=== PATIENT | male | born 1940 | race African-American/Black ===

== ENCOUNTER 2019-04-15 12:09 | Emergency (ER) | payer MEDICARE, OTHER ==
[~2019-04-15] VITALS: Ht 175.3 cm; Wt 79.0 kg
[~2019-04-15 12:09] MED LIST: AMLO2.5T45 MT; ASPI-1158 PO; GLIP5TAB12 PO; LOSA100T32 PO; METF-815 PO; NIAC500T76 PO; PRAV40TA58 PO
[2019-04-15 12:43] VITALS: BP 159/82
== END 2019-04-15 15:57 | disposition left against medical advice (07) ==
LOC: ER 12:09
DX: R05 Cough (principal); R09.81 Nasal congestion; Z53.21 Procedure and treatment not carried out due to patient leaving prior to being seen by health care provider

== ENCOUNTER 2019-04-15 23:10 | Emergency (ER) | payer MEDICARE, OTHER ==
[~2019-04-15] VITALS: Ht 175.3 cm; Wt 80.0 kg
[2019-04-16 01:49] VITALS: BP 139/78
== END 2019-04-16 01:51 | disposition home or self-care (01) ==
LOC: ER 23:10
DX: J06.9 Acute upper respiratory infection, unspecified (principal)
CPT/HCPCS: 71045; 87804; 99284

== ENCOUNTER 2022-10-05 17:37 | Emergency (ER) | payer MEDICARE, OTHER ==
[~2022-10-05] VITALS: Ht 172.7 cm; Wt 75.0 kg
[~2022-10-05 17:37] MED LIST changes: -ASPI-1158 PO; +ASPI-1406 PO; -LOSA100T32 PO; +LOSA100T33 PO; -METF-815 PO; +METF-873 PO
[2022-10-05 17:58] VITALS: BP 119/77; PULSE 77; RESP 12; TEMP 98.6; O2SAT 100
== END 2022-10-05 17:57 | disposition left against medical advice (07) ==
LOC: ER 17:37
DX: K04.7 Periapical abscess without sinus (principal); Z53.21 Procedure and treatment not carried out due to patient leaving prior to being seen by health care provider

== ENCOUNTER 2023-12-31 18:32 | Emergency (ER) | payer OTHER, MEDICARE ==
[~2023-12-31] VITALS: Ht 172.7 cm; Wt 75.0 kg
[~2023-12-31 18:32] MED LIST changes: -GLIP5TAB12 PO; +GLIP5TAB22 PO
[2023-12-31 18:41] VITALS: BP 104/55; PULSE 90; RESP 18; TEMP 98.6; O2SAT 96
[2023-12-31] MEDS ORDERED: CARB15DR63 RIGHT EAR (18:57)
== END 2023-12-31 19:09 | disposition home or self-care (01) ==
LOC: ER 18:32
DX: H61.21 Impacted cerumen, right ear (principal); E11.9 Type 2 diabetes mellitus without complications; I10 Essential (primary) hypertension; I25.10 Atherosclerotic heart disease of native coronary artery without angina pectoris; Z87.01 Personal history of pneumonia (recurrent); Z79.899 Other long term (current) drug therapy; Z79.84 Long term (current) use of oral hypoglycemic drugs; Z79.82 Long term (current) use of aspirin
CPT/HCPCS: 99282